=== PATIENT | female | born 1940 | race Caucasian/White ===

== ENCOUNTER 2017-10-10 11:34 | Emergency (ER) | payer MEDICARE ==
[~2017-10-10] VITALS: Ht 149.9 cm; Wt 75.0 kg
[2017-10-10 12:51] LABS: BASOPHILS # (AUTO) 0.1 X10'3 (0-0.2); BASOPHILS % (AUTO) 0.7 % (0-1); EOSINOPHILS # (AUTO) 0.2 X10'3 (0-0.9); EOSINOPHILS % (AUTO) 2.2 % (0-6); HEMATOCRIT 42.4 % (35.0-45.0); HEMOGLOBIN 14.4 g/dl (12.0-16.0); LYMPHOCYTES # (AUTO) 1.4 X10'3 (1.1-4.8); LYMPHOCYTES % (AUTO) 14.5 % (21-51); MEAN CORPUSCULAR HGB CONC 33.9 % (33.0-36.5); MEAN CORPUSCULAR VOLUME 97.3 FL (78-98); MONOCYTES % (AUTO) 10.3 % (2-12); NEUTROPHILS # (AUTO) 7.1 X10'3 (1.8-7.7); NEUTROPHILS % (AUTO) 72.3 % (42-75); PLATELET COUNT 324 X10'3 (140-440); RED BLOOD COUNT 4.36 X10'6 (4.20-5.60); RED CELL DISTRIBUTION WIDTH 14.9 % (11.5-14.5); WHITE BLOOD COUNT 9.9 X10'3 (4.5-11.0)
[2017-10-10 13:06] LABS: ALANINE AMINOTRANSFERASE 20 U/L (12-78); ALBUMIN 2.5 G/DL (3.4-5.0); ALBUMIN/GLOBULIN RATIO 0.6 (1.1-1.5); ALKALINE PHOSPHATASE 261 IU/L (46-116); ANION GAP 2 (8-16); ASPARTATE AMINO TRANSFERASE 28 U/L (10-37); BILIRUBIN,TOTAL 1.3 MG/DL (0.1-1.0); BLOOD UREA NITROGEN 12 MG/DL (7-18); BUN/CREATININE RATIO 14.6 (6.6-38.0); CALCIUM 9.1 MG/DL (8.5-10.1); CHLORIDE 99 MMOL/L (99-107); CREATININE 0.82 MG/DL (0.40-0.90); GLUCOSE 109 MG/DL (70-104); POTASSIUM 3.8 MMOL/L (3.5-5.1); SODIUM 129 MMOL/L (135-145); TOTAL CARBON DIOXIDE 28.4 MMOL/L (24-32); eGFR 67 ML/MIN
[2017-10-10] MEDS ORDERED: furosemide 10 MG/1 ML 10ml inj IV ONE (13:25)
[2017-10-10] MEDS ORDERED: POTA10CA44 PO (13:49)
[2017-10-10] MEDS ORDERED: CEPH-572 PO (13:49)
[2017-10-10] MEDS ORDERED: FURO-150 PO (13:49)
[2017-10-10] MEDS ORDERED: potassium chloride 10mEq CAPSULE.SA PO STA (13:52)
[2017-10-10] MEDS ORDERED: furosemide 20MG tablet PO ONE (14:10)
[2017-10-10] MEDS ORDERED: HYDROcodone/acetaminophen 10/325mg tab PO ONE (14:45)
[2017-10-10 15:00] VITALS: BP 134/78
== END 2017-10-10 15:07 | disposition home or self-care (01) ==
LOC: ER 11:35
DX: L03.116 Cellulitis of left lower limb (principal); L03.115 Cellulitis of right lower limb; R60.0 Localized edema; E87.1 Hypo-osmolality and hyponatremia; G89.29 Other chronic pain; Z98.890 Other specified postprocedural states; Z79.899 Other long term (current) drug therapy; Z88.0 Allergy status to penicillin; Z88.2 Allergy status to sulfonamides
CPT/HCPCS: 36415; 80053; 83880; 85025; 93970; 99285

== ENCOUNTER 2017-11-19 15:23 | Inpatient (IN) | payer MEDICARE ==
[~2017-11-19] VITALS: Ht 152.4 cm; Wt 75.0 kg
[~2017-11-19 15:23] MED LIST: FURO-150 PO
[2017-11-19 16:04] LABS: BASOPHILS % (AUTO) 0.4 % (0-1); EOSINOPHILS # (AUTO) 0.4 X10'3 (0-0.9); EOSINOPHILS % (AUTO) 3.9 % (0-6); HEMATOCRIT 44.8 % (35.0-45.0); HEMOGLOBIN 15.3 g/dl (12.0-16.0); LYMPHOCYTES # (AUTO) 2.2 X10'3 (1.1-4.8); MEAN CORPUSCULAR HEMOGLOBIN 32.7 PG (27.0-31.0); MEAN CORPUSCULAR HGB CONC 34.1 % (33.0-36.5); MEAN CORPUSCULAR VOLUME 95.9 FL (78-98); MEAN PLATELET VOLUME 7.5 FL (7.4-10.4); MONOCYTES # (AUTO) 0.9 X10'3 (0-0.9); MONOCYTES % (AUTO) 9.4 % (2-12); NEUTROPHILS # (AUTO) 5.7 X10'3 (1.8-7.7); NEUTROPHILS % (AUTO) 62.3 % (42-75); PLATELET COUNT 278 X10'3 (140-440); RED BLOOD COUNT 4.67 X10'6 (4.20-5.60); RED CELL DISTRIBUTION WIDTH 13.8 % (11.5-14.5); WHITE BLOOD COUNT 9.1 X10'3 (4.5-11.0)
[2017-11-19 16:14] LABS: PARTIAL THROMBOPLASTIN TIME 28 SECONDS (22-32); PROTHROMBIN TIME 10.5 SECONDS (9.0-12.0)
[2017-11-19 16:20] LABS: ALANINE AMINOTRANSFERASE 17 U/L (12-78); ALBUMIN 2.8 G/DL (3.4-5.0); ALBUMIN/GLOBULIN RATIO 0.6 (1.1-1.5); ALKALINE PHOSPHATASE 152 IU/L (46-116); ANION GAP 8 (8-16); ASPARTATE AMINO TRANSFERASE 26 U/L (10-37); BILIRUBIN,TOTAL 0.7 MG/DL (0.1-1.0); BLOOD UREA NITROGEN 13 MG/DL (7-18); BUN/CREATININE RATIO 15.3 (6.6-38.0); C-REACTIVE PROTEIN 2.67 MG/DL (0.0-0.5); CALCIUM 8.8 MG/DL (8.5-10.1); CHLORIDE 102 MMOL/L (99-107); CREATININE 0.85 MG/DL (0.40-0.90); GLUCOSE 95 MG/DL (70-104); MAGNESIUM 1.6 MG/DL (1.5-2.4); POTASSIUM 3.8 MMOL/L (3.5-5.1); SODIUM 141 MMOL/L (135-145); TOTAL CARBON DIOXIDE 31.3 MMOL/L (24-32); TOTAL PROTEIN 7.4 G/DL (6.4-8.2); eGFR 65 ML/MIN
[2017-11-19] MEDS ORDERED: vancomycin/NS 1 GM ADD-VANTAGE 250 ML IV ONE (17:10)
[2017-11-19] MEDS ORDERED: potassium Cl 20 mEq SR tablet PO PRN (18:05)
[2017-11-19] MEDS ORDERED: magnesium 4gm in 100ml NS 100 ML IV PRN (18:05)
[2017-11-19] MEDS ORDERED: potassium Cl 40MEQ/NS 500ml 500 ML IV PRN ×2 (18:05)
[2017-11-19] MEDS ORDERED: magnesium 2GM in 50ml NS 50 ML IV PRN (18:05)
[2017-11-19] MEDS ORDERED: HYDROmorphone inj. 0.5 MG/0.5 ML DISP.SYRIN IV PRN ×2 (18:05)
[2017-11-19] MEDS ORDERED: ondansetron/PF 4mg/2ml inj IV PRN (18:05)
[2017-11-19] MEDS ORDERED: haloperidol 5mg tablet PO PRN (18:50)
[2017-11-19] MEDS ORDERED: LORazepam 1 MG tablet PO PRN (18:50)
[2017-11-19] MEDS ORDERED: LORazepam 2 mg/ml vial IV PRN (18:50)
[2017-11-19] MEDS ORDERED: haloperidol lactate 5mg/ml inj IM PRN (18:50)
[2017-11-19] MEDS: vancomycin/NS 1 GM ADD-VANTAGE 250 ML IV SCH (19:06)
[2017-11-19 19:54] VITALS: BP 175/85
[2017-11-19] MEDS: acetaminophen 325mg tablet PO PRN (20:05)
[2017-11-19 22:00] VITALS: BP 129/68
[2017-11-19] MEDS: cefepime 1GM/NS ADD-VANTAGE 100 ML IV SCH (23:47)
[2017-11-20 05:32] LABS: BASOPHILS % (AUTO) 0.4 % (0-1); EOSINOPHILS # (AUTO) 0.5 X10'3 (0-0.9); EOSINOPHILS % (AUTO) 5.7 % (0-6); HEMATOCRIT 38.6 % (35.0-45.0); HEMOGLOBIN 13.6 g/dl (12.0-16.0); LYMPHOCYTES # (AUTO) 1.5 X10'3 (1.1-4.8); LYMPHOCYTES % (AUTO) 15.7 % (21-51); MEAN CORPUSCULAR HEMOGLOBIN 33.7 PG (27.0-31.0); MEAN CORPUSCULAR HGB CONC 35.4 % (33.0-36.5); MEAN CORPUSCULAR VOLUME 95.4 FL (78-98); MEAN PLATELET VOLUME 7.9 FL (7.4-10.4); MONOCYTES # (AUTO) 0.7 X10'3 (0-0.9); MONOCYTES % (AUTO) 7.3 % (2-12); NEUTROPHILS # (AUTO) 6.7 X10'3 (1.8-7.7); NEUTROPHILS % (AUTO) 70.9 % (42-75); PLATELET COUNT 218 X10'3 (140-440); RED BLOOD COUNT 4.05 X10'6 (4.20-5.60); RED CELL DISTRIBUTION WIDTH 13.6 % (11.5-14.5); WHITE BLOOD COUNT 9.4 X10'3 (4.5-11.0)
[2017-11-20 05:47] LABS: PROTHROMBIN TIME 10.5 SECONDS (9.0-12.0)
[2017-11-20 06:49] VITALS: BP 151/71
[2017-11-20 07:26] LABS: ALANINE AMINOTRANSFERASE 17 U/L (12-78); ALBUMIN 2.1 G/DL (3.4-5.0); ALBUMIN/GLOBULIN RATIO 0.6 (1.1-1.5); ALKALINE PHOSPHATASE 123 IU/L (46-116); AMYLASE 18 U/L (25-115); ANION GAP 9 (8-16); ASPARTATE AMINO TRANSFERASE 22 U/L (10-37); BILIRUBIN,TOTAL 0.7 MG/DL (0.1-1.0); BLOOD UREA NITROGEN 12 MG/DL (7-18); BUN/CREATININE RATIO 14.5 (6.6-38.0); CALCIUM 8.1 MG/DL (8.5-10.1); CHLORIDE 106 MMOL/L (99-107); CREATININE 0.83 MG/DL (0.40-0.90); GLUCOSE 90 MG/DL (70-104); LIPASE 58 U/L (73-393); MAGNESIUM 1.4 MG/DL (1.5-2.4); PHOSPHORUS 3.6 MG/DL (2.3-4.5); POTASSIUM 3.5 MMOL/L (3.5-5.1); SODIUM 143 MMOL/L (135-145); TOTAL CARBON DIOXIDE 28.5 MMOL/L (24-32); TOTAL PROTEIN 5.9 G/DL (6.4-8.2); eGFR 66 ML/MIN
[2017-11-20] MEDS: furosemide 20 MG/2 ML vial IV SCH (07:27)
[2017-11-20] MEDS: vancomycin/NS 1 GM ADD-VANTAGE 250 ML IV SCH ×2 (07:27→21:07)
[2017-11-20] MEDS: multivitamins, therapeutics tablet PO SCH (07:27)
[2017-11-20] MEDS: folic acid 1mg tablet PO SCH (07:27)
[2017-11-20] MEDS: thiamine 100mg tablet PO SCH (07:27)
[2017-11-20] MEDS: enoxaparin 40mg/0.4ml syringe SQ SCH (07:28)
[2017-11-20] MEDS: K and/or MAG REPLACEMENT MC SCH (08:00)
[2017-11-20] MEDS: cefepime 1GM/NS ADD-VANTAGE 100 ML IV SCH ×2 (09:08→16:46)
[2017-11-20] MEDS ORDERED: magnesium Cl slow-release 64mg tablet PO SCH (10:05)
[2017-11-20 11:00] VITALS: BP 145/68
[2017-11-20] MEDS: acetaminophen 325mg tablet PO PRN ×2 (11:10→21:08)
[2017-11-20] MEDS: nystatin 15 GM powder TP SCH ×2 (14:26→21:07)
[2017-11-20 18:20] VITALS: BP 154/73
[2017-11-20] MEDS: lactobacillus rhamnosus 10,000 MMU CELLS/CAPSULE PO SCH (21:07)
[2017-11-20 22:00] VITALS: BP 144/83
[2017-11-21] MEDS: cefepime 1GM/NS ADD-VANTAGE 100 ML IV SCH ×3 (00:17→17:07)
[2017-11-21] MEDS ORDERED: LORazepam 2 mg/ml vial IV ONE (01:20)
[2017-11-21] MEDS ORDERED: albuterol 2.5 MG/3 ML nebule NEB PRN (01:40)
[2017-11-21 06:00] VITALS: BP 124/58
[2017-11-21 06:28] LABS: BASOPHILS % (AUTO) 0.1 % (0-1); EOSINOPHILS # (AUTO) 0.2 X10'3 (0-0.9); EOSINOPHILS % (AUTO) 1.4 % (0-6); HEMATOCRIT 37.9 % (35.0-45.0); HEMOGLOBIN 13.2 g/dl (12.0-16.0); LYMPHOCYTES # (AUTO) 1.3 X10'3 (1.1-4.8); LYMPHOCYTES % (AUTO) 9.4 % (21-51); MEAN CORPUSCULAR HEMOGLOBIN 33.2 PG (27.0-31.0); MEAN CORPUSCULAR HGB CONC 34.9 % (33.0-36.5); MEAN CORPUSCULAR VOLUME 95.3 FL (78-98); MEAN PLATELET VOLUME 7.7 FL (7.4-10.4); MONOCYTES # (AUTO) 0.8 X10'3 (0-0.9); MONOCYTES % (AUTO) 5.7 % (2-12); NEUTROPHILS # (AUTO) 11.2 X10'3 (1.8-7.7); NEUTROPHILS % (AUTO) 83.4 % (42-75); PLATELET COUNT 207 X10'3 (140-440); RED BLOOD COUNT 3.98 X10'6 (4.20-5.60); RED CELL DISTRIBUTION WIDTH 13.8 % (11.5-14.5); WHITE BLOOD COUNT 13.4 X10'3 (4.5-11.0)
[2017-11-21] MEDS ORDERED: VANCOMYCIN LEVEL IV NR (06:30)
[2017-11-21 06:50] LABS: ALANINE AMINOTRANSFERASE 16 U/L (12-78); ALBUMIN 1.9 G/DL (3.4-5.0); ALBUMIN/GLOBULIN RATIO 0.5 (1.1-1.5); ALKALINE PHOSPHATASE 115 IU/L (46-116); AMYLASE 18 U/L (25-115); ANION GAP 8 (8-16); ASPARTATE AMINO TRANSFERASE 19 U/L (10-37); BILIRUBIN,TOTAL 0.7 MG/DL (0.1-1.0); BLOOD UREA NITROGEN 11 MG/DL (7-18); BUN/CREATININE RATIO 12.8 (6.6-38.0); CALCIUM 7.9 MG/DL (8.5-10.1); CHLORIDE 104 MMOL/L (99-107); CREATININE 0.86 MG/DL (0.40-0.90); GLUCOSE 111 MG/DL (70-104); LIPASE < 50 U/L (73-393); MAGNESIUM 1.1 MG/DL (1.5-2.4); PHOSPHORUS 3.7 MG/DL (2.3-4.5); POTASSIUM 3.2 MMOL/L (3.5-5.1); SODIUM 141 MMOL/L (135-145); TOTAL CARBON DIOXIDE 28.7 MMOL/L (24-32); TOTAL PROTEIN 5.8 G/DL (6.4-8.2); VANCOMYCIN,TROUGH 19.7 UG/ML (6.0-14.0); eGFR 64 ML/MIN
[2017-11-21] MEDS: lactobacillus rhamnosus 10,000 MMU CELLS/CAPSULE PO SCH ×2 (07:24→20:41)
[2017-11-21] MEDS: vancomycin/NS 1 GM ADD-VANTAGE 250 ML IV SCH ×2 (07:24→20:41)
[2017-11-21] MEDS: folic acid 1mg tablet PO SCH (07:29)
[2017-11-21] MEDS: thiamine 100mg tablet PO SCH (07:30)
[2017-11-21] MEDS: multivitamins, therapeutics tablet PO SCH (07:30)
[2017-11-21] MEDS: potassium Cl 20 mEq SR tablet PO PRN ×3 (07:31→17:08)
[2017-11-21] MEDS: magnesium Cl slow-release 64mg tablet PO PRN ×2 (07:31→17:07)
[2017-11-21] MEDS: nystatin 15 GM powder TP SCH ×3 (07:31→20:40)
[2017-11-21] MEDS: enoxaparin 40mg/0.4ml syringe SQ SCH (07:31)
[2017-11-21] MEDS: K and/or MAG REPLACEMENT MC SCH (08:00)
[2017-11-21] MEDS: furosemide 20 MG/2 ML vial IV SCH (08:00)
[2017-11-21] MEDS ORDERED: sodium phosphate inj. 30 MMOL in dextrose 5%-water 250 ML IV PRN (08:25)
[2017-11-21] MEDS ORDERED: sodium phosphate inj. 15 MMOL in dextrose 5%-water 150 ML IV PRN (08:25)
[2017-11-21] MEDS ORDERED: Neutra Phos packet PO PRN (08:25)
[2017-11-21 10:00] VITALS: BP 158/67
[2017-11-21] MEDS ORDERED: magnesium Cl slow-release 64mg tablet PO PRN (10:05)
[2017-11-21] MEDS ORDERED: methylPREDNISolone sod succ 125mg/2ml vial IV ONE (13:00)
[2017-11-21] MEDS: acetaminophen 325mg tablet PO PRN (13:09)
[2017-11-21] MEDS: methylPREDNISolone sod succ 125mg/2ml vial IV SCH ×2 (14:30→20:41)
[2017-11-21 16:16] LABS: ALBUMIN 2.1 G/DL (3.4-5.0); ANION GAP 7 (8-16); BLOOD UREA NITROGEN 12 MG/DL (7-18); BUN/CREATININE RATIO 14.1 (6.6-38.0); CALCIUM 8.4 MG/DL (8.5-10.1); CHLORIDE 103 MMOL/L (99-107); CREATININE 0.85 MG/DL (0.40-0.90); GLUCOSE 208 MG/DL (70-104); MAGNESIUM 1.2 MG/DL (1.5-2.4); PHOSPHORUS 3.3 MG/DL (2.3-4.5); POTASSIUM 4.1 MMOL/L (3.5-5.1); SODIUM 139 MMOL/L (135-145); TOTAL CARBON DIOXIDE 28.6 MMOL/L (24-32); eGFR 65 ML/MIN
[2017-11-21] MEDS: ipratropium/albuterol 3ml nebule NEB SCH ×3 (16:18→23:59)
[2017-11-21 18:00] VITALS: BP 111/58
[2017-11-21] MEDS ORDERED: pantoprazole 40 MG vial IV ONE (19:00)
[2017-11-21] MEDS: mineral oil/petrolatum, white cream 113gm jar TP SCH (20:40)
[2017-11-21] MEDS: HYDROcodone/acetaminophen 10/325mg tab PO PRN (20:41)
[2017-11-22] MEDS: methylPREDNISolone sod succ 125mg/2ml vial IV SCH ×2 (01:24→07:55)
[2017-11-22] MEDS: cefepime 1GM/NS ADD-VANTAGE 100 ML IV SCH ×3 (01:24→15:47)
[2017-11-22] MEDS: ipratropium/albuterol 3ml nebule NEB SCH ×3 (03:54→11:59)
[2017-11-22 06:00] VITALS: BP 135/71
[2017-11-22 06:03] LABS: BASOPHILS % (AUTO) 0.1 % (0-1); EOSINOPHILS # (AUTO) 0.1 X10'3 (0-0.9); HEMATOCRIT 39.6 % (35.0-45.0); HEMOGLOBIN 13.6 g/dl (12.0-16.0); LYMPHOCYTES # (AUTO) 0.8 X10'3 (1.1-4.8); LYMPHOCYTES % (AUTO) 6.6 % (21-51); MEAN CORPUSCULAR HEMOGLOBIN 33.4 PG (27.0-31.0); MEAN CORPUSCULAR HGB CONC 34.4 % (33.0-36.5); MEAN CORPUSCULAR VOLUME 96.8 FL (78-98); MEAN PLATELET VOLUME 7.8 FL (7.4-10.4); MONOCYTES # (AUTO) 0.2 X10'3 (0-0.9); MONOCYTES % (AUTO) 2.1 % (2-12); NEUTROPHILS # (AUTO) 10.7 X10'3 (1.8-7.7); NEUTROPHILS % (AUTO) 90.2 % (42-75); PLATELET COUNT 223 X10'3 (140-440); RED BLOOD COUNT 4.09 X10'6 (4.20-5.60); RED CELL DISTRIBUTION WIDTH 13.6 % (11.5-14.5); WHITE BLOOD COUNT 11.9 X10'3 (4.5-11.0)
[2017-11-22 06:46] LABS: ALANINE AMINOTRANSFERASE 15 U/L (12-78); ALBUMIN 1.9 G/DL (3.4-5.0); ALBUMIN/GLOBULIN RATIO 0.4 (1.1-1.5); ALKALINE PHOSPHATASE 112 IU/L (46-116); AMYLASE 18 U/L (25-115); ANION GAP 8 (8-16); ASPARTATE AMINO TRANSFERASE 12 U/L (10-37); BILIRUBIN,TOTAL 0.4 MG/DL (0.1-1.0); BLOOD UREA NITROGEN 15 MG/DL (7-18); CALCIUM 8.4 MG/DL (8.5-10.1); CHLORIDE 105 MMOL/L (99-107); CREATININE 0.88 MG/DL (0.40-0.90); GLUCOSE 202 MG/DL (70-104); LIPASE < 50 U/L (73-393); MAGNESIUM 1.4 MG/DL (1.5-2.4); PHOSPHORUS 2.7 MG/DL (2.3-4.5); POTASSIUM 3.9 MMOL/L (3.5-5.1); SODIUM 141 MMOL/L (135-145); TOTAL PROTEIN 6.2 G/DL (6.4-8.2); eGFR 62 ML/MIN
[2017-11-22] MEDS: vancomycin/NS 1 GM ADD-VANTAGE 250 ML IV SCH ×2 (06:47→20:44)
[2017-11-22] MEDS: lactobacillus rhamnosus 10,000 MMU CELLS/CAPSULE PO SCH ×2 (07:55→20:44)
[2017-11-22] MEDS: folic acid 1mg tablet PO SCH (07:55)
[2017-11-22] MEDS: magnesium Cl slow-release 64mg tablet PO PRN ×2 (07:55→20:49)
[2017-11-22] MEDS: thiamine 100mg tablet PO SCH (07:56)
[2017-11-22] MEDS: multivitamins, therapeutics tablet PO SCH (07:56)
[2017-11-22] MEDS: enoxaparin 40mg/0.4ml syringe SQ SCH (07:56)
[2017-11-22] MEDS: nystatin 15 GM powder TP SCH ×3 (07:57→20:44)
[2017-11-22] MEDS: mineral oil/petrolatum, white cream 113gm jar TP SCH ×2 (07:58→20:44)
[2017-11-22] MEDS: furosemide 20 MG/2 ML vial IV SCH ×2 (08:00→20:00)
[2017-11-22] MEDS: K and/or MAG REPLACEMENT MC SCH (08:14)
[2017-11-22 10:00] VITALS: BP_SYST 112; BP_SYST 158; BP_DIAS 53; BP_DIAS 74
[2017-11-22] MEDS: gabapentin 100mg capsule PO SCH ×2 (12:55→20:43)
[2017-11-22 18:00] VITALS: BP 123/64
[2017-11-22] MEDS: HYDROcodone/acetaminophen 10/325mg tab PO PRN (20:49)
[2017-11-22 22:00] VITALS: BP 140/74
[2017-11-23] MEDS: cefepime 1GM/NS ADD-VANTAGE 100 ML IV SCH ×3 (00:28→16:24)
[2017-11-23 05:51] LABS: BASOPHILS % (AUTO) 0.1 % (0-1); EOSINOPHILS % (AUTO) 0 % (0-6); HEMATOCRIT 37.9 % (35.0-45.0); HEMOGLOBIN 13.1 g/dl (12.0-16.0); LYMPHOCYTES # (AUTO) 1.4 X10'3 (1.1-4.8); LYMPHOCYTES % (AUTO) 6.5 % (21-51); MEAN CORPUSCULAR HEMOGLOBIN 33.6 PG (27.0-31.0); MEAN CORPUSCULAR HGB CONC 34.7 % (33.0-36.5); MEAN PLATELET VOLUME 7.8 FL (7.4-10.4); MONOCYTES # (AUTO) 0.9 X10'3 (0-0.9); MONOCYTES % (AUTO) 4.1 % (2-12); NEUTROPHILS % (AUTO) 89.3 % (42-75); PLATELET COUNT 240 X10'3 (140-440); RED CELL DISTRIBUTION WIDTH 13.9 % (11.5-14.5); WHITE BLOOD COUNT 21.3 X10'3 (4.5-11.0)
[2017-11-23 06:00] VITALS: BP 153/78
[2017-11-23 06:09] LABS: ALANINE AMINOTRANSFERASE 14 U/L (12-78); ALBUMIN/GLOBULIN RATIO 0.5 (1.1-1.5); ALKALINE PHOSPHATASE 104 IU/L (46-116); AMYLASE 23 U/L (25-115); ANION GAP 8 (8-16); ASPARTATE AMINO TRANSFERASE 11 U/L (10-37); BILIRUBIN,TOTAL 0.4 MG/DL (0.1-1.0); BLOOD UREA NITROGEN 20 MG/DL (7-18); BUN/CREATININE RATIO 24.7 (6.6-38.0); CALCIUM 8.6 MG/DL (8.5-10.1); CHLORIDE 106 MMOL/L (99-107); CREATININE 0.81 MG/DL (0.40-0.90); GLUCOSE 135 MG/DL (70-104); LIPASE 54 U/L (73-393); MAGNESIUM 1.7 MG/DL (1.5-2.4); POTASSIUM 4.3 MMOL/L (3.5-5.1); SODIUM 139 MMOL/L (135-145); TOTAL CARBON DIOXIDE 24.9 MMOL/L (24-32); TOTAL PROTEIN 6.3 G/DL (6.4-8.2); eGFR 68 ML/MIN
[2017-11-23] MEDS: K and/or MAG REPLACEMENT MC SCH (08:00)
[2017-11-23] MEDS ORDERED: predniSONE 20 mg tablet PO SCH (08:00)
[2017-11-23] MEDS: vancomycin/NS 1 GM ADD-VANTAGE 250 ML IV SCH (09:03)
[2017-11-23] MEDS: multivitamins, therapeutics tablet PO SCH (09:04)
[2017-11-23] MEDS: folic acid 1mg tablet PO SCH (09:04)
[2017-11-23] MEDS: furosemide 20 MG/2 ML vial IV SCH ×2 (09:05→20:20)
[2017-11-23] MEDS: thiamine 100mg tablet PO SCH (09:05)
[2017-11-23] MEDS: lactobacillus rhamnosus 10,000 MMU CELLS/CAPSULE PO SCH ×2 (09:05→20:20)
[2017-11-23] MEDS: gabapentin 100mg capsule PO SCH ×3 (09:05→20:19)
[2017-11-23] MEDS: levoTHYROXINE 175mcg tablet PO SCH (09:05)
[2017-11-23] MEDS: enoxaparin 40mg/0.4ml syringe SQ SCH (09:07)
[2017-11-23] MEDS: mineral oil/petrolatum, white cream 113gm jar TP SCH ×2 (09:14→20:20)
[2017-11-23] MEDS: nystatin 15 GM powder TP SCH ×3 (09:14→20:20)
[2017-11-23 10:00] VITALS: BP 177/99
[2017-11-23] MEDS: HYDROcodone/acetaminophen 10/325mg tab PO PRN ×3 (11:19→20:21)
[2017-11-23 18:00] VITALS: BP 146/76
[2017-11-23] MEDS: albuterol 2.5 MG/3 ML nebule NEB PRN (19:50)
[2017-11-23] MEDS ORDERED: vancomycin/NS 1 GM ADD-VANTAGE 250 ML IV SCH (21:00)
[2017-11-23 22:00] VITALS: BP 167/74
[2017-11-24] MEDS: cefepime 1GM/NS ADD-VANTAGE 100 ML IV SCH ×2 (00:43→07:30)
[2017-11-24 05:00] VITALS: BP 130/73
[2017-11-24 06:03] LABS: BASOPHILS % (AUTO) 0.3 % (0-1); EOSINOPHILS % (AUTO) 0 % (0-6); HEMATOCRIT 40.5 % (35.0-45.0); HEMOGLOBIN 13.8 g/dl (12.0-16.0); LYMPHOCYTES # (AUTO) 1.6 X10'3 (1.1-4.8); LYMPHOCYTES % (AUTO) 11.7 % (21-51); MEAN CORPUSCULAR HEMOGLOBIN 33.1 PG (27.0-31.0); MEAN CORPUSCULAR VOLUME 97.2 FL (78-98); MEAN PLATELET VOLUME 8.3 FL (7.4-10.4); MONOCYTES # (AUTO) 1.2 X10'3 (0-0.9); MONOCYTES % (AUTO) 8.6 % (2-12); NEUTROPHILS % (AUTO) 79.4 % (42-75); PLATELET COUNT 213 X10'3 (140-440); RED BLOOD COUNT 4.16 X10'6 (4.20-5.60); RED CELL DISTRIBUTION WIDTH 13.9 % (11.5-14.5); WHITE BLOOD COUNT 13.9 X10'3 (4.5-11.0)
[2017-11-24 06:35] LABS: ALANINE AMINOTRANSFERASE 13 U/L (12-78); ALBUMIN/GLOBULIN RATIO 0.5 (1.1-1.5); ALKALINE PHOSPHATASE 100 IU/L (46-116); AMYLASE 28 U/L (25-115); ANION GAP 12 (8-16); ASPARTATE AMINO TRANSFERASE 21 U/L (10-37); BILIRUBIN,TOTAL 0.4 MG/DL (0.1-1.0); BLOOD UREA NITROGEN 22 MG/DL (7-18); BUN/CREATININE RATIO 29.7 (6.6-38.0); CALCIUM 8.5 MG/DL (8.5-10.1); CHLORIDE 107 MMOL/L (99-107); CREATININE 0.74 MG/DL (0.40-0.90); GLUCOSE 100 MG/DL (70-104); LIPASE 75 U/L (73-393); MAGNESIUM 1.6 MG/DL (1.5-2.4); PHOSPHORUS 3.6 MG/DL (2.3-4.5); POTASSIUM 3.7 MMOL/L (3.5-5.1); SODIUM 143 MMOL/L (135-145); TOTAL CARBON DIOXIDE 24.4 MMOL/L (24-32); TOTAL PROTEIN 6.2 G/DL (6.4-8.2); eGFR 76 ML/MIN
[2017-11-24] MEDS: lactobacillus rhamnosus 10,000 MMU CELLS/CAPSULE PO SCH ×2 (07:30→21:14)
[2017-11-24] MEDS: levoTHYROXINE 175mcg tablet PO SCH (07:30)
[2017-11-24] MEDS: furosemide 20 MG/2 ML vial IV SCH ×2 (07:30→21:14)
[2017-11-24] MEDS: gabapentin 100mg capsule PO SCH ×3 (07:30→21:15)
[2017-11-24] MEDS: folic acid 1mg tablet PO SCH (07:31)
[2017-11-24] MEDS: thiamine 100mg tablet PO SCH (07:31)
[2017-11-24] MEDS: mineral oil/petrolatum, white cream 113gm jar TP SCH ×2 (07:31→21:19)
[2017-11-24] MEDS: multivitamins, therapeutics tablet PO SCH (07:31)
[2017-11-24] MEDS: enoxaparin 40mg/0.4ml syringe SQ SCH (07:31)
[2017-11-24] MEDS: nystatin 15 GM powder TP SCH ×3 (07:32→21:19)
[2017-11-24] MEDS: K and/or MAG REPLACEMENT MC SCH (08:52)
[2017-11-24 11:02] VITALS: BP 138/88
[2017-11-24] MEDS: CefTRIAXone 2gm/NS 100ml IVPB 100 ML IV SCH (11:43)
[2017-11-24] MEDS ORDERED: guaiFENesin 200 MG/10 ML oral syrup UD cup PO PRN (11:50)
[2017-11-24] MEDS: albuterol 2.5 MG/3 ML nebule NEB PRN (19:12)
[2017-11-24] MEDS: budesonide 0.5mg/2ml UD nebule IH SCH (19:12)
[2017-11-24] MEDS: HYDROcodone/acetaminophen 10/325mg tab PO PRN (21:36)
[2017-11-24 22:00] VITALS: BP 127/68
[2017-11-25 05:58] LABS: BASOPHILS % (AUTO) 0.3 % (0-1); EOSINOPHILS # (AUTO) 0.3 X10'3 (0-0.9); EOSINOPHILS % (AUTO) 3.7 % (0-6); HEMOGLOBIN 13.6 g/dl (12.0-16.0); LYMPHOCYTES # (AUTO) 1.5 X10'3 (1.1-4.8); LYMPHOCYTES % (AUTO) 16.7 % (21-51); MEAN CORPUSCULAR HEMOGLOBIN 33.1 PG (27.0-31.0); MEAN CORPUSCULAR HGB CONC 33.9 % (33.0-36.5); MEAN CORPUSCULAR VOLUME 97.7 FL (78-98); MEAN PLATELET VOLUME 7.6 FL (7.4-10.4); MONOCYTES # (AUTO) 1.3 X10'3 (0-0.9); MONOCYTES % (AUTO) 14.3 % (2-12); PLATELET COUNT 234 X10'3 (140-440); WHITE BLOOD COUNT 9.2 X10'3 (4.5-11.0)
[2017-11-25 06:00] VITALS: BP 135/71
[2017-11-25 06:17] LABS: ANION GAP 7 (8-16); BLOOD UREA NITROGEN 21 MG/DL (7-18); BUN/CREATININE RATIO 21.9 (6.6-38.0); CALCIUM 8.3 MG/DL (8.5-10.1); CHLORIDE 106 MMOL/L (99-107); CREATININE 0.96 MG/DL (0.40-0.90); GLUCOSE 92 MG/DL (70-104); MAGNESIUM 1.6 MG/DL (1.5-2.4); POTASSIUM 3.1 MMOL/L (3.5-5.1); SODIUM 144 MMOL/L (135-145); TOTAL CARBON DIOXIDE 30.6 MMOL/L (24-32); eGFR 56 ML/MIN
[2017-11-25] MEDS: K and/or MAG REPLACEMENT MC SCH (07:10)
[2017-11-25] MEDS ORDERED: potassium Cl 20 mEq SR tablet PO PRN ×2 (07:15)
[2017-11-25] MEDS ORDERED: potassium Cl 40MEQ/NS 500ml 500 ML IV PRN ×2 (07:15)
[2017-11-25] MEDS: levoTHYROXINE 175mcg tablet PO SCH (07:46)
[2017-11-25] MEDS: thiamine 100mg tablet PO SCH (07:51)
[2017-11-25] MEDS: lactobacillus rhamnosus 10,000 MMU CELLS/CAPSULE PO SCH (07:51)
[2017-11-25] MEDS: multivitamins, therapeutics tablet PO SCH (07:51)
[2017-11-25] MEDS: gabapentin 100mg capsule PO SCH ×2 (07:51→12:53)
[2017-11-25] MEDS: folic acid 1mg tablet PO SCH (07:51)
[2017-11-25] MEDS: enoxaparin 40mg/0.4ml syringe SQ SCH (08:00)
[2017-11-25] MEDS: furosemide 20 MG/2 ML vial IV SCH (08:00)
[2017-11-25] MEDS: albuterol 2.5 MG/3 ML nebule NEB PRN (08:41)
[2017-11-25] MEDS: budesonide 0.5mg/2ml UD nebule IH SCH (08:42)
[2017-11-25 10:00] VITALS: BP 106/63
[2017-11-25] MEDS: CefTRIAXone 2gm/NS 100ml IVPB 100 ML IV SCH (12:45)
[2017-11-25] MEDS: nystatin 15 GM powder TP SCH (12:46)
[2017-11-25] MEDS: mineral oil/petrolatum, white cream 113gm jar TP SCH (12:46)
[2017-11-25] MEDS: HYDROcodone/acetaminophen 10/325mg tab PO PRN (12:53)
== END 2017-11-25 14:30 | DRG 603 ==
LOC: ER 15:23 → ED HOLD 18:01 → ORTHO 4S 19:32
PROVIDERS: ADMIT Family Medicine; ATTEND Family Medicine
DX: L03.116 Cellulitis of left lower limb (principal); E44.0 Moderate protein-calorie malnutrition; R06.03 Acute respiratory distress; L97.229 Non-pressure chronic ulcer of left calf with unspecified severity; E03.9 Hypothyroidism, unspecified; F10.10 Alcohol abuse, uncomplicated; F41.9 Anxiety disorder, unspecified; G89.29 Other chronic pain; M54.5 Low back pain; L03.115 Cellulitis of right lower limb; Z96.641 Presence of right artificial hip joint; Z68.32 Body mass index [BMI] 32.0-32.9, adult; Z98.1 Arthrodesis status; Z99.3 Dependence on wheelchair; Z90.49 Acquired absence of other specified parts of digestive tract; Z90.710 Acquired absence of both cervix and uterus; Z98.49 Cataract extraction status, unspecified eye; Z88.1 Allergy status to other antibiotic agents; Z88.2 Allergy status to sulfonamides; Z79.899 Other long term (current) drug therapy; Z92.3 Personal history of irradiation; Z85.3 Personal history of malignant neoplasm of breast; Z87.891 Personal history of nicotine dependence
CPT/HCPCS: 36415; 71045; 71046; 73030; 73610; 80048; 80053; 80202; 82150; 83605; 83690; 83735; 84100; 84145; 84443; 85025; 85610; 85651; 85730; 86140; 87040; 87070; 93005; 93971; 94640; 94667; 94668; 94760; 97116; 97162; 97530; 99285; A6212; A6213; A6222; A6446; C9113; J0692; J0696; J1650; J1940; J2060; J2930; J3370; J7030; J7512; J7626